=== PATIENT | male | born 1975 | race Caucasian/White ===

== ENCOUNTER 2020-08-25 12:06 | Inpatient (IN) | payer MEDICAID ==
[~2020-08-25] VITALS: Ht 177.8 cm; Wt 84.2 kg
[2020-08-25] MEDS ORDERED: aspirin 325mg tablet PO ONE (12:40)
[2020-08-25] MEDS ORDERED: proCHLORperazine 10 MG/2 ml inj IV ONE (12:40)
[2020-08-25 13:15] LABS: BASOPHILS # (AUTO) 0.1 X10'3 (0-0.2); BASOPHILS % (AUTO) 1.3 % (0-1); EOSINOPHILS # (AUTO) 0.2 X10'3 (0-0.9); EOSINOPHILS % (AUTO) 2.7 % (0-6); HEMATOCRIT 44.9 % (42.0-52.0); HEMOGLOBIN 14.7 g/dl (14.0-17.9); LYMPHOCYTES # (AUTO) 1.8 X10'3 (1.1-4.8); LYMPHOCYTES % (AUTO) 28.5 % (21-51); MEAN CORPUSCULAR HEMOGLOBIN 29.8 PG (27.0-31.0); MEAN CORPUSCULAR HGB CONC 32.8 g/dL (33.0-36.5); MEAN CORPUSCULAR VOLUME 90.9 FL (78-98); MEAN PLATELET VOLUME 8.9 FL (7.4-10.4); MONOCYTES # (AUTO) 0.8 X10'3 (0-0.9); NEUTROPHILS # (AUTO) 3.5 X10'3 (1.8-7.7); NEUTROPHILS % (AUTO) 54.5 % (42-75); PLATELET COUNT 185 X10'3 (140-440); RED BLOOD COUNT 4.94 X10'6 (4.70-6.10); RED CELL DISTRIBUTION WIDTH 14.8 % (11.5-14.5); WHITE BLOOD COUNT 6.4 X10'3 (4.5-11.0)
[2020-08-25 13:30] LABS: ALANINE AMINOTRANSFERASE 127 U/L (12-78); ALBUMIN 3.5 G/DL (3.4-5.0); ALBUMIN/GLOBULIN RATIO 1.2 (1.1-1.5); ALKALINE PHOSPHATASE 83 IU/L (46-116); ANION GAP 6 (8-16); ASPARTATE AMINO TRANSFERASE 73 U/L (10-37); BILIRUBIN,TOTAL 1.8 MG/DL (0.1-1.0); BLOOD UREA NITROGEN 27 MG/DL (7-18); BUN/CREATININE RATIO 15.4 (5.4-32.0); CALCIUM 8.5 MG/DL (8.5-10.1); CHLORIDE 94 MMOL/L (99-107); CREATININE 1.75 MG/DL (0.60-1.10); GLUCOSE 118 MG/DL (70-104); POTASSIUM 4.8 MMOL/L (3.5-5.1); SODIUM 129 MMOL/L (135-145); TOTAL PROTEIN 6.5 G/DL (6.4-8.2); eGFR 43 ML/MIN
[2020-08-25] MEDS ORDERED: iohexol 350MG/ML 100ml bottle IV ONE ×2 (13:57)
[2020-08-25 14:06] LABS: C-REACTIVE PROTEIN 0.48 MG/DL (0.0-0.5)
--- NOTE | 2020-08-25 15:41 | NUR ---
echo at bedside
[2020-08-25] MEDS ORDERED: enoxaparin 100mg/ml syringe SUBCUT ONE (16:20)
[2020-08-25] MEDS ORDERED: SPIR25TA5 PO (17:05)
[2020-08-25] MEDS ORDERED: SPIR50TA5 PO (17:05)
[2020-08-25] MEDS ORDERED: CARV12.549 PO (17:05)
[2020-08-25] MEDS ORDERED: FURO40TA4 PO (17:05)
[2020-08-25] MEDS ORDERED: TRAZ-251 PO (17:05)
[2020-08-25] MEDS ORDERED: LISI10TA4 PO (17:05)
[2020-08-25] MEDS ORDERED: ASPI-1265 PO (17:05)
--- NOTE | 2020-08-25 17:36 | NUR ---
dr matos at bedside
[2020-08-25 17:46] LABS: CLARITY,URINE CLEAR (Clear); COLOR,URINE YELLOW (Yellow); GLUCOSE, URINE NEGATIVE (Neg); KETONES,URINE NEGATIVE (Neg); LEUKOCYTE ESTERASE ,URINE NEGATIVE (Neg); NITRITES, URINE NEGATIVE (Neg); OCCULT BLOOD,URINE NEGATIVE (Neg); PH,URINE 7.5 (4.8-8.0); PROTEIN,URINE NEGATIVE (Neg); UROBILINOGEN,URINE 0.2 E.U/dL (0.2-1.0)
[2020-08-25 17:48] LABS: UA COLLECTION TYPE URINAL
[2020-08-25 17:56] LABS: URINE AMPHETAMINE SCREEN POSITIVE (Neg); URINE BARBITUATE SCREEN NEGATIVE (Neg); URINE BENZODIAZEPINES SCREEN NEGATIVE (Neg); URINE CANNABINOID SCREEN NEGATIVE (Neg); URINE COCAINE SCREEN NEGATIVE (Neg); URINE METHADONE SCREEN NEGATIVE (Neg); URINE OPIATE SCREEN NEGATIVE (Neg); URINE PHENCYCLIDINE SCREEN NEGATIVE (Neg)
[2020-08-25] MEDS ORDERED: bisacodyl 10mg suppository rectal RC PRN (18:05)
[2020-08-25] MEDS ORDERED: potassium Cl 20 mEq SR tablet PO PRN ×2 (18:05)
[2020-08-25] MEDS ORDERED: magnesium 4gm in 100ml NS 100 ML IV PRN (18:05)
[2020-08-25] MEDS ORDERED: acetaminophen 325mg tablet PO PRN (18:05)
[2020-08-25] MEDS ORDERED: magnesium hydroxide 30ml (MOM) UD suspension PO PRN (18:05)
[2020-08-25] MEDS ORDERED: magnesium Cl slow-release 64mg tablet PO PRN (18:05)
[2020-08-25] MEDS ORDERED: ondansetron/PF 4mg/2ml inj IV PRN (18:05)
[2020-08-25] MEDS ORDERED: magnesium 2GM in 50ml NS 50 ML IV PRN (18:05)
[2020-08-25] MEDS ORDERED: potassium Cl 40MEQ/1/2NS 520ml 520 ML IV PRN ×2 (18:05)
[2020-08-25] MEDS: K and/or MAG REPLACEMENT MC SCH (20:00)
[2020-08-25] MEDS: docusate sod 100mg capsule PO SCH (20:10)
[2020-08-25] MEDS: traZODone 50mg tablet PO SCH (20:10)
[2020-08-25] MEDS: carVEDilol 12.5mg tablet PO SCH (20:10)
--- NOTE | 2020-08-25 20:39 | NUR ---
REPEAT EKG, PER ERIN.
--- NOTE | 2020-08-25 22:00 | NUR ---
Patient in room PCU 3015. I have received report from Chris LOZANO and had the opportunity to ask questions and assume patient care.
[2020-08-25 22:58] VITALS: BP 107/71
--- NOTE | 2020-08-25 23:34 | NUR ---
[id number], JONNY PEREZ. MILD ANXIETY , POSTIVE FOR AMPHETAMINES , FEELING SOB , MAY I HAVE ONE TIME ORDER FOR ATIVAN AND 2LNC FOR COMFORT , THANKS, JUAN J LOZANO [id number]
[2020-08-25] MEDS ORDERED: LORazepam 2 mg/ml vial IV ONE (23:35)
[2020-08-26 02:00] VITALS: BP 94/55
[2020-08-26] MEDS ORDERED: LORazepam 2 mg/ml vial IV PRN (05:45)
--- NOTE | 2020-08-26 05:46 | NUR ---
PAGER ID: [phone] MESSAGE: [phone] JOSÉ LUIS PEREZ PATIENT WITH POSTIVE AMPHATAMNES . ADMITS TO METH USE, ANXIOUS AND VERY FIGITY . WAS WANTING A POSSIBLE PRN STANDING ORDER FOR ATIVAN. WHICH SEEMED TO HELP WITH THIS EARLIER IN SHIFT. THANK YOU JUAN J LOZANO [phone]
--- NOTE | 2020-08-26 06:24 | NUR ---
Problems reprioritized. Patient report given, questions answered & plan of care reviewed with Maria L LOZANO.
--- NOTE | 2020-08-26 06:32 | NUR ---
Patient in room PCU 3015. I have received report from Chino Patel RN and had the opportunity to ask questions and assume patient care.
--- NOTE | 2020-08-26 06:39 | NUR ---
Patient in room PCU 3015. I have received report from BLAKE Louis and BLAKE Patel and had the opportunity to ask questions and assume patient care. Patient awake in bed and in no acute distress.
[2020-08-26 06:59] LABS: BASOPHILS # (AUTO) 0.1 X10'3 (0-0.2); BASOPHILS % (AUTO) 0.9 % (0-1); EOSINOPHILS # (AUTO) 0.2 X10'3 (0-0.9); EOSINOPHILS % (AUTO) 3.2 % (0-6); HEMATOCRIT 48.1 % (42.0-52.0); LYMPHOCYTES # (AUTO) 2.2 X10'3 (1.1-4.8); LYMPHOCYTES % (AUTO) 35.4 % (21-51); MEAN CORPUSCULAR HEMOGLOBIN 30.1 PG (27.0-31.0); MEAN CORPUSCULAR HGB CONC 33.2 g/dL (33.0-36.5); MEAN CORPUSCULAR VOLUME 90.8 FL (78-98); MEAN PLATELET VOLUME 9.3 FL (7.4-10.4); MONOCYTES # (AUTO) 0.8 X10'3 (0-0.9); MONOCYTES % (AUTO) 12.4 % (2-12); NEUTROPHILS # (AUTO) 2.9 X10'3 (1.8-7.7); NEUTROPHILS % (AUTO) 48.1 % (42-75); PLATELET COUNT 180 X10'3 (140-440); RED BLOOD COUNT 5.29 X10'6 (4.70-6.10); RED CELL DISTRIBUTION WIDTH 15.3 % (11.5-14.5); WHITE BLOOD COUNT 6.1 X10'3 (4.5-11.0)
[2020-08-26 07:00] VITALS: BP 98/71
[2020-08-26 07:05] LABS: ALBUMIN 3.3 G/DL (3.4-5.0); ANION GAP 9 (8-16); BLOOD UREA NITROGEN 25 MG/DL (7-18); BUN/CREATININE RATIO 15.1 (5.4-32.0); CALCIUM 8.7 MG/DL (8.5-10.1); CHLORIDE 97 MMOL/L (99-107); CREATININE 1.66 MG/DL (0.60-1.10); GLUCOSE 95 MG/DL (70-104); MAGNESIUM 2.6 MG/DL (1.5-2.4); POTASSIUM 4.6 MMOL/L (3.5-5.1); SODIUM 133 MMOL/L (135-145); TOTAL CARBON DIOXIDE 26.9 MMOL/L (24-32); eGFR 45 ML/MIN
[2020-08-26] MEDS: K and/or MAG REPLACEMENT MC SCH ×2 (08:00→20:00)
[2020-08-26] MEDS: lisinopril 10 MG tablet PO SCH (08:00)
--- NOTE | 2020-08-26 08:02 | NUR ---
Paged Dr. Colón regarding 19 beat of Vtach. PAGER ID: [phone] MESSAGE: [phone] Gregor Briggs. Patient had 19 beat run of Vtach. Thank you Paris LOZANO [phone].
[2020-08-26] MEDS: furosemide 40mg tablet PO SCH (08:21)
[2020-08-26] MEDS: aspirin 81mg tab.chew PO SCH (08:21)
[2020-08-26] MEDS: carVEDilol 12.5mg tablet PO SCH ×2 (08:22→20:26)
[2020-08-26] MEDS: docusate sod 100mg capsule PO SCH ×2 (08:22→20:00)
[2020-08-26] MEDS: spironolactone 50 MG tablet PO SCH (08:23)
[2020-08-26 11:00] VITALS: BP 94/67
[2020-08-26] MEDS ORDERED: heparin 10,000 units/1 ML INJ IV ONE (12:30)
[2020-08-26] MEDS ORDERED: heparin 10,000 units/1 ML INJ IV PRN (12:30)
--- NOTE | 2020-08-26 12:30 | NUR ---
Orders to start patient on heparin drip per DVT protocol, per Dr. Colón.
[2020-08-26] MEDS: heparin 25,000 UNIT/250ml bag 250 ML IV SCH (12:48)
[2020-08-26 15:00] VITALS: BP 103/70
--- NOTE | 2020-08-26 16:39 | NUR ---
Adrian Colón regarding critical lab value. PAGER ID: [phone] MESSAGE: [phone]. Gregor Briggs. Critical lab value pTT >139. Thank you. Paris LOZANO [phone]
--- NOTE | 2020-08-26 16:46 | NUR ---
[place] Medication Administration: For this medication-pass time frame, all medication were reviewed, dispensed, administered and documented per hospital policy by BLAKE Toledo.
--- NOTE | 2020-08-26 16:46 | NUR ---
[place] documentation: I have reviewed and agree with all interventions, assessments performed and documented by BLAKE Toledo.
[2020-08-26 18:00] VITALS: BP 124/79
--- NOTE | 2020-08-26 18:10 | NUR ---
Problems reprioritized. Patient report given, questions answered & plan of care reviewed with Dom/Fredy RN. Patient stable at transfer of care.
--- NOTE | 2020-08-26 18:23 | NUR ---
Patient in room PCU 3015. I have received report from grzegorz and osbaldo and had the opportunity to ask questions and assume patient care.
[2020-08-26] MEDS ORDERED: LORazepam 2 mg/ml vial ONE (20:25)
[2020-08-26] MEDS: traZODone 50mg tablet PO SCH (20:25)
--- NOTE | 2020-08-26 20:44 | NUR ---
Patient stated he felt SOB. O2 sat was 85%. Nasal cannula 2 liters placed and patients o2 sat increased to 97% in q5 minutes. Rubén continue to monitor.
[2020-08-26 22:00] VITALS: BP 103/79
[2020-08-27] VITALS (7 sets, daily range): BP systolic 95–112; BP diastolic 63–82
[2020-08-27 02:14] LABS: BASOPHILS # (AUTO) 0.1 X10'3 (0-0.2); BASOPHILS % (AUTO) 0.9 % (0-1); EOSINOPHILS # (AUTO) 0.2 X10'3 (0-0.9); EOSINOPHILS % (AUTO) 3.7 % (0-6); HEMATOCRIT 43.4 % (42.0-52.0); HEMOGLOBIN 14.2 g/dl (14.0-17.9); LYMPHOCYTES # (AUTO) 2.3 X10'3 (1.1-4.8); LYMPHOCYTES % (AUTO) 33.4 % (21-51); MEAN CORPUSCULAR HEMOGLOBIN 29.5 PG (27.0-31.0); MEAN CORPUSCULAR HGB CONC 32.6 g/dL (33.0-36.5); MEAN CORPUSCULAR VOLUME 90.6 FL (78-98); MEAN PLATELET VOLUME 9.6 FL (7.4-10.4); MONOCYTES # (AUTO) 0.9 X10'3 (0-0.9); MONOCYTES % (AUTO) 13.6 % (2-12); NEUTROPHILS # (AUTO) 3.3 X10'3 (1.8-7.7); NEUTROPHILS % (AUTO) 48.4 % (42-75); PLATELET COUNT 166 X10'3 (140-440); RED BLOOD COUNT 4.79 X10'6 (4.70-6.10); RED CELL DISTRIBUTION WIDTH 14.9 % (11.5-14.5); WHITE BLOOD COUNT 6.8 X10'3 (4.5-11.0)
[2020-08-27 02:17] LABS: ANION GAP 8 (8-16); BLOOD UREA NITROGEN 28 MG/DL (7-18); BUN/CREATININE RATIO 20.9 (5.4-32.0); CALCIUM 8.4 MG/DL (8.5-10.1); CHLORIDE 100 MMOL/L (99-107); CREATININE 1.34 MG/DL (0.60-1.10); GLUCOSE 106 MG/DL (70-104); MAGNESIUM 2.2 MG/DL (1.5-2.4); POTASSIUM 4.5 MMOL/L (3.5-5.1); SODIUM 133 MMOL/L (135-145); TOTAL CARBON DIOXIDE 25.4 MMOL/L (24-32); eGFR 58 ML/MIN
[2020-08-27] MEDS: heparin 25,000 UNIT/250ml bag 250 ML IV SCH ×2 (03:37→17:56)
--- NOTE | 2020-08-27 05:53 | NUR ---
[facility] documentation: I have reviewed and agree with all interventions, assessments performed and documented by Fredy RN.
--- NOTE | 2020-08-27 06:06 | NUR ---
Problems reprioritized. Patient report given, questions answered & plan of care reviewed with amor.
--- NOTE | 2020-08-27 06:10 | NUR ---
Patient in room PCU 3015. I have received report from Cathy RN's and had the opportunity to ask questions and assume patient care.
--- NOTE | 2020-08-27 06:43 | NUR ---
Patient in room PCU 3015. I have received report from Dom, RN and Fredy RN and had the opportunity to ask questions and assume patient care. Patient asleep in bed and in no acute distress.
[2020-08-27] MEDS: lisinopril 10 MG tablet PO SCH (08:00)
[2020-08-27] MEDS: K and/or MAG REPLACEMENT MC SCH ×2 (08:00→20:13)
[2020-08-27] MEDS: docusate sod 100mg capsule PO SCH ×2 (08:00→20:12)
[2020-08-27] MEDS: spironolactone 50 MG tablet PO SCH (08:37)
[2020-08-27] MEDS: furosemide 40mg tablet PO SCH (08:37)
[2020-08-27] MEDS: aspirin 81mg tab.chew PO SCH (08:37)
[2020-08-27] MEDS: carVEDilol 12.5mg tablet PO SCH ×2 (08:37→20:12)
--- NOTE | 2020-08-27 17:44 | NUR ---
[place] documentation: I have reviewed and agree with all interventions, assessments performed and documented by BLAKE Solomon.
--- NOTE | 2020-08-27 17:44 | NUR ---
[place] Medication Administration: For this medication-pass time frame, all medication were reviewed, dispensed, administered and documented per hospital policy by BLAKE Solomon.
--- NOTE | 2020-08-27 18:13 | NUR ---
Problems reprioritized. Patient report given, questions answered & plan of care reviewed with BLAKE Daniel.
--- NOTE | 2020-08-27 18:25 | NUR ---
Patient in room PCU 3015. I have received report from dipika and had the opportunity to ask questions and assume patient care.
[2020-08-27] MEDS: traZODone 50mg tablet PO SCH (20:12)
[2020-08-27] MEDS ORDERED: LORazepam 2 mg/ml vial IV PRN (20:15)
[2020-08-28 02:00] VITALS: BP 99/62
--- NOTE | 2020-08-28 06:20 | NUR ---
Patient in room PCU 3015. I have received report from BLAKE Daniel and had the opportunity to ask questions and assume patient care.
[2020-08-28 06:30] VITALS: BP 99/62
--- NOTE | 2020-08-28 06:34 | NUR ---
Problems reprioritized. Patient report given, questions answered & plan of care reviewed with jeni.
[2020-08-28 07:22] LABS: BASOPHILS # (AUTO) 0.1 X10'3 (0-0.2); EOSINOPHILS # (AUTO) 0.3 X10'3 (0-0.9); EOSINOPHILS % (AUTO) 5.2 % (0-6); HEMATOCRIT 41.9 % (42.0-52.0); HEMOGLOBIN 13.9 g/dl (14.0-17.9); LYMPHOCYTES # (AUTO) 1.7 X10'3 (1.1-4.8); LYMPHOCYTES % (AUTO) 28.1 % (21-51); MEAN CORPUSCULAR HEMOGLOBIN 29.9 PG (27.0-31.0); MEAN CORPUSCULAR HGB CONC 33.1 g/dL (33.0-36.5); MEAN CORPUSCULAR VOLUME 90.3 FL (78-98); MEAN PLATELET VOLUME 9.5 FL (7.4-10.4); MONOCYTES # (AUTO) 0.8 X10'3 (0-0.9); NEUTROPHILS # (AUTO) 3.2 X10'3 (1.8-7.7); NEUTROPHILS % (AUTO) 52.7 % (42-75); PLATELET COUNT 153 X10'3 (140-440); RED BLOOD COUNT 4.65 X10'6 (4.70-6.10); RED CELL DISTRIBUTION WIDTH 15.5 % (11.5-14.5); WHITE BLOOD COUNT 6.1 X10'3 (4.5-11.0)
[2020-08-28 07:32] LABS: ALBUMIN 2.8 G/DL (3.4-5.0); ANION GAP 9 (8-16); BLOOD UREA NITROGEN 20 MG/DL (7-18); BUN/CREATININE RATIO 17.1 (5.4-32.0); CALCIUM 8.3 MG/DL (8.5-10.1); CHLORIDE 105 MMOL/L (99-107); CREATININE 1.17 MG/DL (0.60-1.10); GLUCOSE 103 MG/DL (70-104); MAGNESIUM 2.2 MG/DL (1.5-2.4); POTASSIUM 4.5 MMOL/L (3.5-5.1); SODIUM 138 MMOL/L (135-145); TOTAL CARBON DIOXIDE 23.7 MMOL/L (24-32); eGFR 68 ML/MIN
[2020-08-28] MEDS: K and/or MAG REPLACEMENT MC SCH (07:35)
[2020-08-28] MEDS: lisinopril 10 MG tablet PO SCH (07:41)
[2020-08-28] MEDS: furosemide 40mg tablet PO SCH (07:41)
[2020-08-28] MEDS: carVEDilol 12.5mg tablet PO SCH (07:41)
[2020-08-28] MEDS: docusate sod 100mg capsule PO SCH (08:00)
[2020-08-28] MEDS: heparin 25,000 UNIT/250ml bag 250 ML IV SCH (09:09)
[2020-08-28] MEDS: aspirin 81mg tab.chew PO SCH (09:17)
[2020-08-28] MEDS: spironolactone 50 MG tablet PO SCH (09:17)
[2020-08-28] MEDS ORDERED: APIX5TAB3 PO ×2 (09:36→09:37)
[2020-08-28 11:00] VITALS: BP 104/65
--- NOTE | 2020-08-28 14:40 | NUR ---
DC inst provided to pt. IV DC'd, tip intact. All belongings sent w/pt. WC to front lobby.
== END 2020-08-28 16:02 | disposition home or self-care (01) | DRG 134 ==
LOC: ER 12:07 → ED HOLD 18:04 → PCU 3S 22:30
PROVIDERS: ADMIT Internal Medicine; ATTEND Internal Medicine
DX: I26.99 Other pulmonary embolism without acute cor pulmonale (principal); I42.9 Cardiomyopathy, unspecified; I50.22 Chronic systolic (congestive) heart failure; K21.9 Gastro-esophageal reflux disease without esophagitis; N17.9 Acute kidney failure, unspecified; E87.1 Hypo-osmolality and hyponatremia; F32.9 Major depressive disorder, single episode, unspecified; G47.00 Insomnia, unspecified; Z20.822 Contact with and (suspected) exposure to COVID-19; Z95.810 Presence of automatic (implantable) cardiac defibrillator; Z79.899 Other long term (current) drug therapy; Z79.82 Long term (current) use of aspirin
CPT/HCPCS: 36415; 71045; 71275; 76937; 80048; 80053; 80305; 81003; 83735; 83880; 84145; 84484; 85025; 85610; 85651; 85730; 86140; 87081; 87635; 93005; 93306; 93308; 96372; 96374; 99285; G0378; J0780; J1644; J1650; J2060; Q9967

== ENCOUNTER 2020-09-01 05:50 | Emergency (ER) | payer MEDICAID ==
[~2020-09-01] VITALS: Ht 182.9 cm; Wt 90.9 kg
[~2020-09-01 05:50] MED LIST: APIX5TAB3 PO; ASPI-1265 PO; CARV12.549 PO; FURO40TA4 PO; LISI10TA4 PO; SPIR50TA5 PO; TRAZ-251 PO
[2020-09-01 06:35] LABS: BASOPHILS # (AUTO) 0.1 X10'3 (0-0.2); BASOPHILS % (AUTO) 0.9 % (0-1); EOSINOPHILS # (AUTO) 0.2 X10'3 (0-0.9); HEMATOCRIT 40.2 % (42.0-52.0); HEMOGLOBIN 13.4 g/dl (14.0-17.9); LYMPHOCYTES # (AUTO) 1.9 X10'3 (1.1-4.8); LYMPHOCYTES % (AUTO) 23.3 % (21-51); MEAN CORPUSCULAR HEMOGLOBIN 29.6 PG (27.0-31.0); MEAN CORPUSCULAR HGB CONC 33.2 g/dL (33.0-36.5); MEAN CORPUSCULAR VOLUME 88.9 FL (78-98); MEAN PLATELET VOLUME 9.5 FL (7.4-10.4); MONOCYTES # (AUTO) 1.1 X10'3 (0-0.9); MONOCYTES % (AUTO) 13.8 % (2-12); NEUTROPHILS # (AUTO) 4.7 X10'3 (1.8-7.7); PLATELET COUNT 171 X10'3 (140-440); RED BLOOD COUNT 4.52 X10'6 (4.70-6.10); RED CELL DISTRIBUTION WIDTH 15.2 % (11.5-14.5)
[2020-09-01 07:51] LABS: ALANINE AMINOTRANSFERASE 185 U/L (12-78); ALBUMIN 3.1 G/DL (3.4-5.0); ALKALINE PHOSPHATASE 59 IU/L (46-116); ANION GAP 13 (8-16); ASPARTATE AMINO TRANSFERASE 133 U/L (10-37); BILIRUBIN,TOTAL 1.5 MG/DL (0.1-1.0); BLOOD UREA NITROGEN 30 MG/DL (7-18); BUN/CREATININE RATIO 21.4 (5.4-32.0); CALCIUM 8.7 MG/DL (8.5-10.1); CHLORIDE 97 MMOL/L (99-107); GLUCOSE 89 MG/DL (70-104); POTASSIUM 3.7 MMOL/L (3.5-5.1); SODIUM 132 MMOL/L (135-145); TOTAL CARBON DIOXIDE 21.8 MMOL/L (24-32); TOTAL PROTEIN 6.2 G/DL (6.4-8.2); eGFR 55 ML/MIN
[2020-09-01] MEDS ORDERED: HYDROcodone/acetaminophen 5mg/325mg tablet PO ONE (07:55)
[2020-09-01 07:59] LABS: MAGNESIUM 1.7 MG/DL (1.5-2.4)
[2020-09-01] MEDS ORDERED: furosemide 10 MG/1 ML 10ml inj IV ONE (08:20)
[2020-09-01] MEDS: furosemide 40mg/4ml inj IV ONE ×2 (08:30→08:48)
--- NOTE | 2020-09-01 08:47 | NUR ---
pt states, you have 20 minutes to get my discharge paper work to me
--- NOTE | 2020-09-01 08:50 | NUR ---
PT REFUSED LASIX. STATES, " I CAN TAKE MINE AT HOME, "
--- NOTE | 2020-09-01 08:59 | NUR ---
PT REFUSING TROPONIN DRAW
[2020-09-01 09:05] VITALS: BP 122/86
== END 2020-09-01 09:44 | disposition home or self-care (01) ==
LOC: ER 05:50
DX: R06.00 Dyspnea, unspecified (principal); Z20.822 Contact with and (suspected) exposure to COVID-19; R07.89 Other chest pain; R11.2 Nausea with vomiting, unspecified; I50.9 Heart failure, unspecified; Z95.0 Presence of cardiac pacemaker; Z79.82 Long term (current) use of aspirin; Z79.899 Other long term (current) drug therapy; Z86.711 Personal history of pulmonary embolism
CPT/HCPCS: 36415; 71045; 80053; 83735; 83880; 84484; 85025; 85610; 87635; 93005; 99285; J1940

== ENCOUNTER 2020-09-05 00:16 | Emergency (ER) | payer MEDICAID ==
[~2020-09-05] VITALS: Ht 177.8 cm; Wt 93.2 kg
[2020-09-05] MEDS ORDERED: HYDROcodone/acetaminophen 5mg/325mg tablet PO ONE (01:40)
--- NOTE | 2020-09-05 03:37 | NUR ---
SMALL IRREGULAR SHAPE MASS TO LEFT EAR CANAL OOZING SEROUS FLUID
[2020-09-05] MEDS ORDERED: NAPR-56 PO (03:40)
[2020-09-05] MEDS ORDERED: cephalexin 500mg capsule PO ONE (03:40)
[2020-09-05] MEDS ORDERED: naproxen 500mg tablet PO ONE (03:40)
[2020-09-05] MEDS ORDERED: CEPH250T PO (03:40)
[2020-09-05 03:51] VITALS: BP 106/72
== END 2020-09-05 03:54 | disposition home or self-care (01) ==
LOC: ER 00:16
DX: H60.12 Cellulitis of left external ear (principal); I50.9 Heart failure, unspecified; Z95.0 Presence of cardiac pacemaker; F15.90 Other stimulant use, unspecified, uncomplicated; Z79.2 Long term (current) use of antibiotics; Z79.899 Other long term (current) drug therapy
CPT/HCPCS: 99284

== ENCOUNTER 2020-09-05 16:46 | Emergency (ER) | payer MEDICAID ==
[~2020-09-05] VITALS: Ht 177.8 cm; Wt 93.2 kg
[~2020-09-05 16:46] MED LIST changes: +CEPH250T PO; +LISI10TA27 PO; -LISI10TA4 PO; +NAPR-56 PO
[2020-09-05 18:04] LABS: BASOPHILS # (AUTO) 0.1 X10'3 (0-0.2); BASOPHILS % (AUTO) 0.9 % (0-1); EOSINOPHILS # (AUTO) 0.2 X10'3 (0-0.9); EOSINOPHILS % (AUTO) 2.1 % (0-6); HEMATOCRIT 41.9 % (42.0-52.0); HEMOGLOBIN 13.8 g/dl (14.0-17.9); LYMPHOCYTES # (AUTO) 1.7 X10'3 (1.1-4.8); LYMPHOCYTES % (AUTO) 22.5 % (21-51); MEAN CORPUSCULAR HEMOGLOBIN 29.2 PG (27.0-31.0); MEAN CORPUSCULAR HGB CONC 32.9 g/dL (33.0-36.5); MEAN CORPUSCULAR VOLUME 88.6 FL (78-98); MEAN PLATELET VOLUME 9.5 FL (7.4-10.4); MONOCYTES % (AUTO) 12.8 % (2-12); NEUTROPHILS # (AUTO) 4.8 X10'3 (1.8-7.7); NEUTROPHILS % (AUTO) 61.7 % (42-75); PLATELET COUNT 190 X10'3 (140-440); RED BLOOD COUNT 4.73 X10'6 (4.70-6.10); WHITE BLOOD COUNT 7.8 X10'3 (4.5-11.0)
[2020-09-05 18:25] LABS: ALANINE AMINOTRANSFERASE 545 U/L (12-78); ALBUMIN 3.4 G/DL (3.4-5.0); ALKALINE PHOSPHATASE 99 IU/L (46-116); ANION GAP 8 (8-16); ASPARTATE AMINO TRANSFERASE 391 U/L (10-37); BILIRUBIN,TOTAL 2.6 MG/DL (0.1-1.0); BLOOD UREA NITROGEN 44 MG/DL (7-18); BUN/CREATININE RATIO 24.3 (5.4-32.0); CALCIUM 8.9 MG/DL (8.5-10.1); CHLORIDE 91 MMOL/L (99-107); CREATININE 1.81 MG/DL (0.60-1.10); GLUCOSE 89 MG/DL (70-104); POTASSIUM 5.2 MMOL/L (3.5-5.1); SODIUM 124 MMOL/L (135-145); TOTAL CARBON DIOXIDE 24.8 MMOL/L (24-32); TOTAL PROTEIN 6.7 G/DL (6.4-8.2); eGFR 41 ML/MIN
[2020-09-05] MEDS ORDERED: NACL IV ONE (19:15)
[2020-09-05] MEDS ORDERED: ISO OSM IV ONE (19:15)
[2020-09-05] MEDS ORDERED: sodium bicarbonate (8.4%) inj. 1 MEQ/ML ML IV ONE (19:15)
[2020-09-05] MEDS ORDERED: insulin regular, human U-100 3ml vial - multi-dose IV ONE (19:15)
[2020-09-05] MEDS ORDERED: normal saline 1000ML IV soln IVB ONE (19:15)
[2020-09-05] MEDS ORDERED: CALCIUM GLUC IV ONE (19:15)
[2020-09-05] MEDS ORDERED: dextrose 50%-water 50ml dispensing syringe IV ONE (19:15)
[2020-09-05] MEDS ORDERED: insulin regular, human 10 units/0.1 ml syringe IV ONE (19:25)
[2020-09-05 21:05] VITALS: BP 135/88
== END 2020-09-05 20:55 | disposition home or self-care (01) ==
LOC: ER 16:46
DX: R07.81 Pleurodynia (principal); R06.02 Shortness of breath; E87.1 Hypo-osmolality and hyponatremia; N28.9 Disorder of kidney and ureter, unspecified; E87.5 Hyperkalemia; I26.99 Other pulmonary embolism without acute cor pulmonale; I43 Cardiomyopathy in diseases classified elsewhere; I25.10 Atherosclerotic heart disease of native coronary artery without angina pectoris; F15.90 Other stimulant use, unspecified, uncomplicated; Z59.0 Homelessness; Z86.711 Personal history of pulmonary embolism; Z95.0 Presence of cardiac pacemaker; Z79.82 Long term (current) use of aspirin; Z79.899 Other long term (current) drug therapy
CPT/HCPCS: 36415; 71045; 80053; 83880; 84484; 85025; 93005; 96360; 99285; J1815; J7030

== ENCOUNTER 2020-09-13 13:02 | Emergency (ER) | payer MEDICAID ==
[~2020-09-13] VITALS: Ht 177.8 cm; Wt 90.9 kg
[2020-09-13 13:18] VITALS: BP 119/79
== END 2020-09-13 13:58 | disposition home or self-care (01) ==
LOC: ER 13:03
DX: H72.92 Unspecified perforation of tympanic membrane, left ear (principal); I25.10 Atherosclerotic heart disease of native coronary artery without angina pectoris; F15.90 Other stimulant use, unspecified, uncomplicated; Z59.0 Homelessness; Z95.0 Presence of cardiac pacemaker; Z79.2 Long term (current) use of antibiotics; Z79.82 Long term (current) use of aspirin; Z79.899 Other long term (current) drug therapy
CPT/HCPCS: 99281

== ENCOUNTER 2020-09-19 06:48 | Emergency (ER) | payer MEDICAID ==
[~2020-09-19] VITALS: Ht 177.8 cm; Wt 97.7 kg
[~2020-09-19 06:48] MED LIST changes: -CEPH250T PO
[2020-09-19] MEDS ORDERED: furosemide 20MG tablet PO ONE (07:30)
[2020-09-19 07:35] VITALS: BP 118/69
== END 2020-09-19 07:46 | disposition home or self-care (01) ==
LOC: ER 06:48
DX: I50.22 Chronic systolic (congestive) heart failure (principal); Z95.810 Presence of automatic (implantable) cardiac defibrillator; F15.90 Other stimulant use, unspecified, uncomplicated; R60.0 Localized edema; Z59.0 Homelessness; Z86.711 Personal history of pulmonary embolism; Z79.01 Long term (current) use of anticoagulants; Z79.82 Long term (current) use of aspirin; Z79.899 Other long term (current) drug therapy
CPT/HCPCS: 93005; 99283

== ENCOUNTER 2020-09-24 16:56 | Emergency (ER) | payer MEDICAID ==
[2020-09-24] MEDS ORDERED: furosemide 10 MG/1 ML 10ml inj IV ONE (18:30)
[2020-09-24] MEDS ORDERED: SPIR50TA5 PO (20:49)
[2020-09-24 21:08] VITALS: BP 119/87
== END 2020-09-24 21:12 | disposition home or self-care (01) ==
LOC: ER 16:57
DX: R60.0 Localized edema (principal); F15.90 Other stimulant use, unspecified, uncomplicated; I50.9 Heart failure, unspecified; Z86.711 Personal history of pulmonary embolism; Z95.0 Presence of cardiac pacemaker; Z59.0 Homelessness; Z79.82 Long term (current) use of aspirin; Z79.899 Other long term (current) drug therapy
CPT/HCPCS: 96374; 99283; J1940

== ENCOUNTER 2023-04-03 02:15 | Emergency (ER) | payer MEDICAID ==
[~2023-04-03] VITALS: Ht 177.8 cm; Wt 95.5 kg
[~2023-04-03 02:15] MED LIST changes: -NAPR-56 PO
[2023-04-03 02:52] VITALS: BP 115/73; PULSE 72; RESP 18; TEMP 98.1; O2SAT 99
== END 2023-04-03 02:58 ==
LOC: ER 02:15
DX: I51.9 Heart disease, unspecified; F15.10 Other stimulant abuse, uncomplicated; Z79.899 Other long term (current) drug therapy
CPT/HCPCS: 99283; A6449

== ENCOUNTER 2023-04-03 04:22 | Emergency (ER) | payer MEDICAID ==
[~2023-04-03] VITALS: Ht 177.8 cm; Wt 95.5 kg
[2023-04-03 04:39] VITALS: BP 120/70; PULSE 75; RESP 18; TEMP 98.2; O2SAT 99
[2023-04-03] MEDS ORDERED: azithromycin 250mg tablet PO ONE (05:05)
[2023-04-03] MEDS ORDERED: CefTRIAXone 500MG IM Kit w/LIDOcaine IM ONE (05:05)
== END 2023-04-03 05:16 ==
LOC: ER 04:22
DX: N50.89 Other specified disorders of the male genital organs (principal); I50.9 Heart failure, unspecified; F15.90 Other stimulant use, unspecified, uncomplicated; Z79.82 Long term (current) use of aspirin; Z79.899 Other long term (current) drug therapy
CPT/HCPCS: 96372; 99283; J0696

== ENCOUNTER 2024-08-02 21:55 | Emergency (ER) | payer MEDICAID ==
[~2024-08-02] VITALS: Ht 177.8 cm; Wt 100.2 kg
[2024-08-02] MEDS: HYDROcodone/acetaminophen 5mg/325mg tablet PO ONE (23:10)
[2024-08-02 23:27] LABS: BASOPHILS # (AUTO) 0.1 X10'3 (0-0.2); BASOPHILS % (AUTO) 1.2 % (0-1); EOSINOPHILS # (AUTO) 0.3 X10'3 (0-0.9); EOSINOPHILS % (AUTO) 3.8 % (0-6); HEMATOCRIT 45.9 % (42.0-52.0); HEMOGLOBIN 15.2 g/dl (14.0-17.9); LYMPHOCYTES # (AUTO) 1.7 X10'3 (1.1-4.8); LYMPHOCYTES % (AUTO) 23.9 % (21-51); MEAN CORPUSCULAR HEMOGLOBIN 29.5 PG (27.0-31.0); MEAN CORPUSCULAR HGB CONC 33.2 g/dL (33.0-36.5); MEAN CORPUSCULAR VOLUME 88.8 FL (78-98); MEAN PLATELET VOLUME 8.3 FL (7.4-10.4); MONOCYTES # (AUTO) 0.9 X10'3 (0-0.9); MONOCYTES % (AUTO) 12.1 % (2-12); NEUTROPHILS # (AUTO) 4.2 X10'3 (1.8-7.7); PLATELET COUNT 188 X10'3 (140-440); RED BLOOD COUNT 5.17 X10'6 (4.70-6.10); RED CELL DISTRIBUTION WIDTH 16.6 % (11.5-14.5); WHITE BLOOD COUNT 7.2 X10'3 (4.5-11.0)
[2024-08-02 23:41] LABS: ALANINE AMINOTRANSFERASE 29 U/L (12-78); ALBUMIN 3.6 G/DL (3.4-5.0); ALBUMIN/GLOBULIN RATIO 0.9 (1.1-1.5); ALKALINE PHOSPHATASE 146 IU/L (46-116); ANION GAP 11 (8-16); ASPARTATE AMINO TRANSFERASE 32 U/L (10-37); BILIRUBIN,TOTAL 1.5 MG/DL (0.1-1.0); BLOOD UREA NITROGEN 23 MG/DL (7-18); BUN/CREATININE RATIO 15.9 (10.0-20.0); CALCIUM 9.2 MG/DL (8.5-10.1); CHLORIDE 103 MMOL/L (99-107); CREATININE 1.45 MG/DL (0.60-1.10); GLUCOSE 91 MG/DL (70-104); POTASSIUM 4.6 MMOL/L (3.5-5.1); SODIUM 136 MMOL/L (135-145); TOTAL CARBON DIOXIDE 22.3 MMOL/L (24-32); TOTAL PROTEIN 7.7 G/DL (6.4-8.2); eCRCL 65 ML/MIN; eGFR 52 ML/MIN
[2024-08-02 23:48] LABS: PRO BRAIN NATRIURETIC PEPTIDE 3382 PG/ML (0-125)
[2024-08-03 00:41] VITALS: PULSE 81
[2024-08-03] MEDS: furosemide 10 MG/1 ML 10ml inj IV ONE (00:41)
[2024-08-03 00:48] VITALS: BP 124/84; RESP 15; TEMP 97.5; O2SAT 100
== END 2024-08-03 01:04 | disposition home or self-care (01) ==
LOC: ER 21:56
DX: R60.0 Localized edema (principal); N43.3 Hydrocele, unspecified; I50.9 Heart failure, unspecified; Z95.0 Presence of cardiac pacemaker; F15.90 Other stimulant use, unspecified, uncomplicated; Z79.82 Long term (current) use of aspirin
CPT/HCPCS: 36415; 71045; 80053; 83880; 84484; 85025; 85379; 93005; 96374; 99285; J1940; A6449

== ENCOUNTER 2024-08-15 11:58 | Emergency (ER) | payer MEDICAID ==
[~2024-08-15] VITALS: Ht 177.8 cm; Wt 95.5 kg
[2024-08-15 12:06] VITALS: TEMP 96.8
[2024-08-15 12:53] VITALS: BP 127/63; PULSE 87; RESP 16; O2SAT 98
== END 2024-08-15 12:53 | disposition home or self-care (01) ==
LOC: ER 11:58
DX: Z02.89 Encounter for other administrative examinations (principal); I87.2 Venous insufficiency (chronic) (peripheral); I50.9 Heart failure, unspecified; F15.90 Other stimulant use, unspecified, uncomplicated; R60.0 Localized edema; Z95.0 Presence of cardiac pacemaker; Z79.82 Long term (current) use of aspirin; Z86.711 Personal history of pulmonary embolism
CPT/HCPCS: 99281; 99282